=== PATIENT | male | born 1990 | race Caucasian/White ===

== ENCOUNTER 2024-07-15 13:17 | Emergency (ER) | payer OTHER, SELFPAY ==
[2024-07-15 13:24] VITALS: BP 132/87; PULSE 82; TEMP 36.8; O2SAT 99; BMI 29.0
--- NOTE | 2024-07-15 16:11 | ED_ITS ---
HPI HPI - General Adult General Chief complaint: Dental/Oral Stated complaint: DENTAL PAIN Time Seen by Provider: 07/15/24 16:04 Source: patient Mode of arrival: walk-in Limitations: no limitations History of Present Illness HPI narrative: Patient presents with severe left-sided facial pain since yesterday. Hurts to open his mouth. He denies earache, chills or fever. Related Data Previous Rx's ?Medication ?Instructions ?Recorded amoxicillin 875 mg-potassium 1 tab PO BID #20 tabs 07/15/24 clavulanate 125 mg tablet chlorhexidine gluconate 0.12 % 15 ml buccal BID #473 mL 07/15/24 mouthwash (Paroex Oral Rinse) hydrocodone 5 mg-acetaminophen 325 1 tab PO Q6H PRN pain #12 tabs 07/15/24 mg tablet ibuprofen 600 mg tablet 600 mg PO TID PRN pain #15 tabs 07/15/24 Allergies Allergy/AdvReac Type Severity Reaction Status Date / Time steroid Allergy Unknown unkown Uncoded 07/15/24 13:30 Opioid HPI Opioid Management Most Recent Opioid Data: No Data to Display Review of Systems ROS Status of ROS 10 or more systems reviewed and unremark able except as noted in history and below PFSH PFSH Social History Little interest or pleasure in doing things: not at all Feeling down, depressed, or hopeless: not at all Exam Narrative Exam Narrative: Patient appears in discomfort due to his pain. Vital signs are stable with no temperature elevation noted. There is no facial swelling. Examination the oral cavity reveals carious teeth numbers 15 and 16 that are tender to light percussion. Patient has an impacted tooth #32 that is not tender. There is no sign of gingival abscess. He is not tender over the maxillary antrum. Neck is supple and is without adenopathy. Lung sounds are clear to auscultation bilaterally heart has regular rate and rhythm. Constitutional Vital Signs, click to edit/add: Last Vital Signs Temp 98.2 F 07/15/24 13:24 Pulse 82 07/15/24 13:24 Resp 16 07/15/24 13:24 BP 132/87 07/15/24 13:24 Pulse Ox 99 07/15/24 13:24 O2 Del Method Room Air 07/15/24 13:24 Course Vital Signs Vital signs: Vital Signs Temperature 98.2 F 07/15/24 13:24 Pulse Rate 82 07/15/24 13:24 Respiratory Rate 16 07/15/24 13:24 Blood Pressure 132/87 07/15/24 13:24 Pulse Oximetry 99 07/15/24 13:24 Oxygen Delivery Method Room Air 07/15/24 13:24 Temperature 98.2 F 07/15/24 13:24 Pulse Rate 82 07/15/24 13:24 Respiratory Rate 16 07/15/24 13:24 Blood Pressure 132/87 07/15/24 13:24 Pulse Oximetry 99 07/15/24 13:24 Oxygen Delivery Method Room Air 07/15/24 13:24 Medical Decision Making MDM Narrative Medical decision making narrative: Patient presents with a dental infection involving the molars in his left upper jaw. He is placed on Augmentin, ibuprofen, S [place] and Peridex and is advised early dental follow-up. Discharge Plan Discharge Chief Complaint: Dental/Oral Clinical Impression: Dental abscess, Toothache Patient Disposition: Home, Self-Care Time of Disposition Decision: 16:04 Condition: Good Mode of Transportation: Private Vehicle Prescriptions / Home Meds: New ibuprofen 600 mg tablet 600 mg PO TID PRN (Reason: pain) Qty: 15 0RF amoxicillin-pot clavulanate 875-125 mg tablet 1 tab PO BID Qty: 20 0RF chlorhexidine gluconate [Paroex Oral Rinse] 0.12 % mouthwash 15 ml buccal BID Qty: 473 0RF hydrocodone-acetaminophen 5-325 mg tablet 1 tab PO Q6H PRN (Reason: pain) Qty: 12 0RF Print Language: Hungarian Instructions: Dental Abscess (ED), Toothache (ED) Additional Instructions: Dental follow-up as soon as possible. Return for worsening symptoms. Referrals: Physician,Non-Staff, MD [Primary Care Provider] - 1 week
== END 2024-07-15 16:24 | disposition home or self-care (01) ==
PROVIDERS: Emergency Provider Emergency Medicine
DX: K04.7 Periapical abscess without sinus (principal); K08.9 Disorder of teeth and supporting structures, unspecified
CPT/HCPCS: 99283